=== PATIENT | female | born 1980 | race Two or more races ===

== ENCOUNTER 2020-10-21 20:05 | Emergency (ER) | payer OTHER, MEDICAID ==
[~2020-10-21] VITALS: Ht 165.1 cm; Wt 122.5 kg
[2020-10-21 23:25] VITALS: BP 138/108
== END 2020-10-22 00:20 | disposition home or self-care (01) ==
LOC: ER 20:07
DX: S93.401A Sprain of unspecified ligament of right ankle, initial encounter (principal); I10 Essential (primary) hypertension; W10.8XXA Fall (on) (from) other stairs and steps, initial encounter; Y93.01 Activity, walking, marching and hiking; Y92.89 Other specified places as the place of occurrence of the external cause; Y99.8 Other external cause status
CPT/HCPCS: 73610

== ENCOUNTER 2021-04-18 03:34 | Emergency (ER) | payer OTHER, MEDICAID ==
[~2021-04-18] VITALS: Ht 167.6 cm; Wt 136.1 kg
[2021-04-18] MEDS ORDERED: NALOXONE HCL 1MG/ML 2ML SYRINGE ONE (03:39)
[2021-04-18 04:39] LABS: Urine WBC None Seen /hpf (0 - 5)
[2021-04-18 04:40] LABS: Basophils # (auto) 0 10 ^3/uL (0-0.2); Basophils % (auto) 0.3 % (0.0-2.0); Eosinophils # (auto) 0.1 10 ^3/uL (0-0.8); Eosinophils % (auto) 0.9 % (0.0-7.0); Hemoglobin 13.4 g/dL (12.2-16.2); Lymphocytes # (auto) 2.9 10 ^3/uL (0.4-5.4); Lymphocytes % (auto) 26.6 % (10.0-50.0); Mean Corpuscular Hemoglobin 27.8 pg (28.0-32.0); Mean Corpuscular Hgb Conc. 32.7 g/dL (32.0-36.0); Mean Corpuscular Volume 85.1 fL (80.0-100.0); Monocytes # (auto) 0.6 10 ^3/uL (0-1.3); Monocytes % (auto) 5.4 % (0.0-12.0); Neutrophils # (auto) 7.2 10 ^3/uL (1.6-8.6); Neutrophils % (auto) 66.8 % (37.0-80.0); Nucleated Red Blood Cells % 0.1 %; Red Blood Cells 4.82 10^6/uL (4.0-5.20); Red Cell Distribution Width 14.7 % (11.8-14.3); White Blood Cell 10.8 10^3/uL (4.4-10.8)
[2021-04-18 04:48] LABS: Alanine Aminotransferase 20 U/L (13-56); Albumin 2.9 g/dL (3.4-5.0); Anion Gap 9 (5-15); Aspartate Aminotransferase 37 U/L (15-37); BUN/Creatinine Ratio 10.8; Blood Alcohol < 3.0 mg/dL (0-5); Blood Urea Nitrogen 10 mg/dL (7-18); Carbon Dioxide 20 mmol/L (21-32); Chloride 114 mmol/L (98-107); GFR African American 85 mL/min; GFR Non-African American 71 mL/min; Glucose 133 mg/dL (74-106); Magnesium 2.5 mg/dL (1.6-2.6); Potassium 4.3 mmol/L (3.5-5.1); Sodium 143 mmol/L (136-145)
[2021-04-18 04:53] LABS: Alkaline Phosphatase 77 U/L (45-117); Bilirubin, Total 0.4 mg/dL (0.2-1.0); Total Protein 7.8 g/dL (6.4-8.2)
[2021-04-18 04:54] LABS: Urine Bacteria NONE SEEN /hpf (None Seen); Urine Blood Negative /uL (Negative); Urine Specific Gravity 1.002 (1.001-1.035)
[2021-04-18 04:54] LABS: INR 1.24 (0.9-1.15)
[2021-04-18 04:59] LABS: Amphetamine Screen, Urine NEGATIVE (NEGATIVE); Barbiturate Scree,Urine NEGATIVE (NEGATIVE); Benzodiazephine Screen, Urine NEGATIVE (NEGATIVE); Cannabinoid Screen, Urine NEGATIVE (NEGATIVE); Cocaine Screen, Urine NEGATIVE (NEGATIVE); Opiate Scree,Urine NEGATIVE (NEGATIVE); Phencyclidine Screen, Urine NEGATIVE (NEGATIVE)
[2021-04-18 05:06] LABS: Alcohol, Urine < 3.0 mg/dL (0-10)
[2021-04-18] MEDS ORDERED: NALOXONE HCL 1MG/ML 2ML SYRINGE IV ONE (05:15)
[2021-04-18] MEDS ORDERED: LORazepam 2MG/ML-1ML VIAL IV PRN (05:15)
[2021-04-21] MEDS ORDERED: LITHIUM CARBONATE 300 MG TAB PO ONE
[2021-04-21] MEDS ORDERED: QUEtiapine FUMARATE 100 MG TAB PO ONE (01:30)
[2021-04-21] MEDS ORDERED: FLUoxetine HCL 20 MG CAP PO ONE (01:30)
[2021-04-21] MEDS ORDERED: FLUoxetine HCL 20 MG CAP PO SCH (10:00)
[2021-04-21 20:24] VITALS: BP 161/92
[2021-04-21] MEDS ORDERED: QUEtiapine FUMARATE 100 MG TAB PO SCH (22:00)
== END 2021-04-21 20:53 ==
LOC: EDBD 03:34 → EDUNIT# 03:34 → ER 03:34
DX: T43.222A Poisoning by selective serotonin reuptake inhibitors, intentional self-harm, initial encounter (principal); R41.82 Altered mental status, unspecified; I10 Essential (primary) hypertension; Z20.822 Contact with and (suspected) exposure to COVID-19; Y92.89 Other specified places as the place of occurrence of the external cause
CPT/HCPCS: 36415; 70450; 71045; 80053; 80178; 80307; 80320; 80329; 81001; 82010; 83605; 83735; 84443; 84484; 84702; 85025; 85610; 87426; 93005; 96374; 96375; 99285; J2060; J2310

== ENCOUNTER 2022-11-06 18:18 | Emergency (ER) | payer OTHER, MEDICAID ==
[~2022-11-06] VITALS: Ht 165.1 cm; Wt 106.0 kg
[2022-11-06] MEDS ORDERED: ASPirin 325 MG TAB PO ONE (18:30)
[2022-11-06 18:38] VITALS: BP 147/93
[2022-11-06] MEDS ORDERED: SODIUM CHLORIDE 0.9% 1,000 ML IV ONE (18:45)
[2022-11-06 19:12] LABS: Basophils # (auto) 0 10 ^3/uL (0-0.2); Basophils % (auto) 0.5 % (0.0-2.0); Eosinophils # (auto) 0 10 ^3/uL (0-0.8); Eosinophils % (auto) 0.6 % (0.0-7.0); Hematocrit 43.1 % (36.0-46.0); Hemoglobin 14.5 g/dL (12.2-16.2); Lymphocytes # (auto) 2.4 10 ^3/uL (0.4-5.4); Lymphocytes % (auto) 30.9 % (10.0-50.0); Mean Corpuscular Hemoglobin 28.4 pg (28.0-32.0); Mean Corpuscular Hgb Conc. 33.6 g/dL (32.0-36.0); Mean Corpuscular Volume 84.6 fL (80.0-100.0); Monocytes # (auto) 0.6 10 ^3/uL (0-1.3); Monocytes % (auto) 7.4 % (0.0-12.0); Neutrophils # (auto) 4.7 10 ^3/uL (1.6-8.6); Neutrophils % (auto) 60.6 % (37.0-80.0); Nucleated Red Blood Cells % 0.2 %; Red Blood Cells 5.09 10^6/uL (4.0-5.20); Red Cell Distribution Width 15.4 % (11.8-14.3); White Blood Cell 7.8 10^3/uL (4.4-10.8)
[2022-11-06 19:32] LABS: Albumin 3.9 g/dL (3.4-5.0); BUN/Creatinine Ratio 7.2 (10.0-20.0); Calcium 9.5 mg/dL (8.5-10.1); INR 1.32 (0.9-1.15); Partial Thromboplastin Time 29.5 sec (24.6-33.4)
[2022-11-06 19:35] LABS: Bilirubin, Total 0.6 mg/dL (0.2-1.0); Total Protein 7.7 g/dL (6.4-8.2)
[2022-11-06 19:40] LABS: Potassium 2.7 mmol/L (3.5-5.1)
[2022-11-06] MEDS ORDERED: POTASSIUM CHL 20 Meq TABLET PO ONE (20:00)
== END 2022-11-07 01:43 | disposition left against medical advice (07) ==
LOC: ER 18:22
DX: R07.89 Other chest pain (principal); I10 Essential (primary) hypertension
CPT/HCPCS: 36415; 71045; 80053; 83735; 83880; 84443; 84484; 85025; 85379; 85610; 85730; 93005